=== PATIENT | male | born 1970 | race African-American/Black ===

== ENCOUNTER 2018-09-15 17:06 | Emergency (ER) | payer SELFPAY ==
[~2018-09-15] VITALS: Ht 188 cm; Wt 95.3 kg
[2018-09-15 17:12] VITALS: BP 163/105
--- NOTE | 2018-09-15 18:24 | NUR ---
Patient discharged to home in stable condition. Written and verbal after care instructions given. Patient verbalizes understanding of instruction.
== END 2018-09-15 18:23 | disposition home or self-care (01) ==
LOC: ER 17:11
DX: S01.80XA Unspecified open wound of other part of head, initial encounter (principal); J45.909 Unspecified asthma, uncomplicated; X58.XXXA Exposure to other specified factors, initial encounter; Y93.89 Activity, other specified; Y92.89 Other specified places as the place of occurrence of the external cause; Y99.8 Other external cause status
CPT/HCPCS: 99283; A6402